=== PATIENT | female | born 2000 | race Caucasian/White ===

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

== ENCOUNTER 2018-10-25 15:30 | Emergency (ER) | payer MEDICAID ==
[~2018-10-25] VITALS: Ht 162.6 cm; Wt 80.0 kg
[~2018-10-25 15:30] MED LIST: CEPH500C PO
[2018-10-25 15:32] VITALS: Ht 162.6 cm; Wt 80.0 kg
[2018-10-25] MEDS ORDERED: SOD CHLORIDE 0.9% 1,000 ML IV STA (15:44)
[2018-10-25] MEDS ORDERED: SODIUM CHLORIDE 0.9% 1L BAG IV* STA (15:45)
[2018-10-25] MEDS ORDERED: PIPER-TAZO 3.375 GM IV (PMX) 100 ML IVPB STA (15:45)
--- NOTE | 2018-10-25 16:54 | ERD ---
ER Documentation Chief Complaint Chief Complaint RUQ MUQpain with n/v 30min [employer], HX:Pancreatitis; abd tender, pale/cool/clam HPI 18-year-old female presenting with epigastric and right upper quadrant abdominal pain radiating to her back. This started about 30 minutes prior to arrival. The pain has improved slightly but was 10 out of 10 prior to arrival. She was noted to be pale, cool, and diaphoretic in triage. She denies any fevers or chills. She did have some nonbloody and nonbilious vomiting. She denies drinking alcohol. No dysuria or hematuria. No chest pain or shortness of breath. ROS All systems reviewed and are negative except as per history of present illness. Medications Home Meds Active Scripts Ibuprofen* (Motrin*) 600 Mg Tab, 600 MG PO Q6H PRN for PAIN AND OR ELEVATED TEMP, #30 TAB Prov:COLTON CABRAL MD 10/25/18 Discontinued Scripts Cephalexin* (Cephalexin*) 500 Mg Capsule, 500 MG PO Q12H for 7 Days, #14 CAP Prov:CORKY BELL NP 11/30/17 Allergies Allergies: Coded Allergies: No Known Allergy (Unverified , 10/25/18) PMhx/Soc History of Surgery: No Anesthesia Reaction: No Hx Neurological Disorder: No Hx Respiratory Disorders: No Hx Cardiac Disorders: No Hx Psychiatric Problems: Yes (ANXIETY--ON THERAPY) Hx Miscellaneous Medical Probl: No Hx Alcohol Use: Yes (4-5 SHOTS 2X A MONTH) Hx Substance Use: Yes (MARIJUANA IN THE PAST) Hx Tobacco Use: No Smoking Status: Never smoker FmHx Family History: No diabetes Physical Exam Vitals Vital Signs Date Temp Pulse Resp B/P (MAP) Pulse Ox O2 O2 Flow FiO2 Time Delivery Rate 10/25/18 54 18 95/61 (72) 100 Room Air 17:34 10/25/18 57 15 91/57 (68) 100 Room Air 16:55 10/25/18 96.3 53 36 79/50 (60) 99 15:32 Physical Exam Const: No acute distress, well-appearing on my exam, nontoxic Head: Atraumatic Eyes: Normal Conjunctiva ENT: Normal External Ears, Nose and Mouth. Neck: Full range of motion. No meningismus. Resp: Clear to auscultation bilaterally Cardio: Regular rate and rhythm, no murmurs Abd: Soft, mild epigastric tenderness to palpation with no rebound or guarding. Non distended. Normal bowel sounds Skin: No petechiae or rashes Back: No midline or flank tenderness Ext: No cyanosis, or edema Neur: Awake and alert Psych: Normal Mood and Affect Result Diagram: 10/25/18 1552 10/25/18 1552 Results 24 hrs Laboratory Tests Test 10/25/18 12:35 10/25/18 15:52 10/25/18 16:01 10/25/18 17:42 Urine Color YELLOW Urine Clarity SLIGHTLY CLOUDY Urine pH 5.0 Urine Specific 1.020 [place] Urine Ketones NEGATIVE mg/dL Urine Nitrite NEGATIVE mg/dL Urine Bilirubin NEGATIVE mg/dL Urine Urobilinogen 1+ mg/dL Urine Leukocyte NEGATIVE Gage/ul Esterase Urine Microscopic 1 /HPF RBC Urine Microscopic 3 /HPF WBC Urine Squamous FEW /HPF Epithelial Cells Urine Mucus FEW /HPF Urine Hemoglobin NEGATIVE mg/dL Urine Glucose NEGATIVE mg/dL Urine Total Protein 1+ mg/dl White Blood Count 8.5 10^3/ul Red Blood Count 4.33 10^6/ul Hemoglobin 12.8 g/dl Hematocrit 39.5 % Mean Corpuscular 91.2 fl Volume Mean Corpuscular 29.6 pg Hemoglobin Mean Corpuscular 32.4 g/dl Hemoglobin Concent Red Cell 13.1 % Distribution Width Platelet Count 404 10^3/UL Mean Platelet 10.0 fl Volume Immature 0.400 % Granulocytes % Neutrophils % 52.7 % Lymphocytes % 37.4 % Monocytes % 5.7 % Eosinophils % 3.3 % Basophils % 0.5 % Nucleated Red Blood 0.0 /100WBC Cells % Immature 0.030 10^3/ul Granulocytes # Neutrophils # 4.5 10^3/ul Lymphocytes # 3.2 10^3/ul Monocytes # 0.5 10^3/ul Eosinophils # 0.3 10^3/ul Basophils # 0.0 10^3/ul Nucleated Red Blood 0.0 10^3/ul Cells # Prothrombin Time 12.2 Sec Prothrombin Time 1.0 Ratio INR International 0.89 Normalized Ratio Activated 26.3 Sec Partial Thromboplas t Time Sodium Level 144 mmol/L Potassium Level 3.6 mmol/L Chloride Level 106 mmol/L Carbon Dioxide 25 mmol/L Level Anion Gap 13 Blood Urea Nitrogen 12 mg/dl Creatinine 0.67 mg/dl Est Glomerular > 60 mL/min Filtrat Rate mL/min Glucose Level 154 mg/dl Calcium Level 9.1 mg/dl Total Bilirubin 0.7 mg/dl Direct Bilirubin 0.00 mg/dl Indirect Bilirubin 0.7 mg/dl Aspartate Amino 51 IU/L Transf (AST/SGOT) Alanine 38 IU/L Aminotransferase (A LT/SGPT) Alkaline 68 IU/L Phosphatase Total Protein 7.8 g/dl Albumin 4.6 g/dl Globulin 3.20 g/dl Albumin/Globulin 1.43 Ratio Lipase 75 U/L POC Venous Lactate 2.3 mmol/L Bedside Urine pH 6.0 (LAB) Bedside Urine 2+ Protein (LAB) Bedside Urine Negative Glucose (UA) Bedside Urine Negative Ketones (LAB) Bedside Urine Blood Negative Bedside Urine Negative Nitrite (LAB) Bedside Urine Negative Leukocyte Esterase (L Test 10/25/18 17:43 10/25/18 18:27 POC Beta HCG, NEGATIVE Qualitative Lactic Acid Level 1.4 mmol/L Current Medications Medications Dose Sig/Chong Start Time Status Last (Trade) Ordered Route PRN Stop Time Admin Dose Reason Admin Sodium 1,000 ml @ Q1H STAT 10/25/18 DC Chloride 1,000 mls/hr IV 15:44 10/25/18 15:47 Sodium 2,400 ml BOLUS OVER 2 10/25/18 DC 10/25/18 Chloride HOURS STAT 15:45 10/25/18 16:06 (NS) IV* 15:47 Piperacillin 100 ml @ ONCE STAT 10/25/18 DC 10/25/18 Sod/ 200 mls/hr IVPB 15:45 10/25/18 16:54 Tazobactam 16:14 Sod Procedures/MDM EMERGENT LABS AND DIAGNOSTIC STUDIES: Lab Results above were reviewed and interpreted by me. CBC: no anemia or evidence of infection CMP: No evidence of clinically significant electrolyte abnormality, acidosis, renal failure, hypoglycemia, liver disease, or biliary obstruction Lipase: no evidence of pancreatitis Lactate elevated UA: no evidence of infection 12-lead EKG was interpreted by Abraham Cabral MD: Sinus bradycardia at 56 bpm Normal axis Normal intervals No acute ST or T wave changes suggestive of acute ischemia or STEMI. Radiology Results as interpreted by Radiology below were reviewed by River Cabral MD: Chest x-ray shows no acute abnormalities Ultrasound gallbladder: Cholelithiasis without evidence of cholecystitis or biliary obstruction Initial Nursing notes reviewed. Previous Medical Records requested via the Electronic Health Record. EMERGENCY DEPARTMENT COURSE / MEDICAL DECISION MAKING: Patient likely presenting with biliary colic. When she initially arrived, she was bradycardic, hypotensive, and diaphoretic which I suspect was most likely a vasovagal response. Sepsis work-up was initiated given her complaint of abdominal pain. However as soon as the patient arrived to the bed, her vitals had improved. She also states that her pain is improved. Differential includes but is not limited to biliary colic, biliary obstruction, acute cholecystitis, pancreatitis, hepatitis, lower lobe pneumonia, gastritis, colitis, cardiac pathology, aortic dissection, ureterolithiasis, pyelonephritis. Labs were or dered to evaluate for above and were unremarkable. Chest Xray ordered to evaluate for pneumonia and [was read as normal by radiology]. Ultrasound of the abdomen ordered to evaluate gallbladder and showed [no acute pathology]. I suspect the patient most likely was suffering from biliary colic. There is no evidence of pancreatitis or cholecystitis. Doubt serious bacterial infection. Her lactate was slightly elevated, but I feel this is most likely secondary to hypoperfusion due to transient hypotension and not sepsis. Patient symptoms have resolved and she is stable for discharge. Return precautions discussed. Follow-up with outpatient surgery also discussed for possible elective cholecystectomy. Departure Diagnosis: Primary Impression: Biliary colic Additional Impression: Gallstone Cholecystitis presence: without cholecystitis Biliary obstruction: without biliary obstruction Qualified Codes: K80.20 - Calculus of gallbladder without cholecystitis without obstruction Condition: Stable COLTON CABRAL MD Oct 25, 2018 16:54
[2018-10-25] MEDS ORDERED: IBUP-1542 PO (18:32)
[2018-10-25 20:03] VITALS: BP 99/59; PULSE 62; RESP 18
== END 2018-10-25 20:17 | disposition home or self-care (01) ==
LOC: E/R 15:30
DX: K80.50 Calculus of bile duct without cholangitis or cholecystitis without obstruction (principal); K80.20 Calculus of gallbladder without cholecystitis without obstruction
CPT/HCPCS: 36415; 71045; 76705; 80053; 81001; 81003; 81025; 83605; 83690; 85025; 85610; 85730; 87040; 87086; 93005; 96374; J2543; J7030; Z7502

== ENCOUNTER 2018-10-30 02:21 | Emergency (ER) | payer MEDICAID ==
[~2018-10-30] VITALS: Ht 162.6 cm; Wt 79.3 kg
[~2018-10-30 02:21] MED LIST changes: -CEPH500C PO; +IBUP-1542 PO
[2018-10-30 02:48] VITALS: BP 111/54; PULSE 60; RESP 18; Ht 162.6 cm; Wt 79.3 kg
[2018-10-30] MEDS ORDERED: IBUP-1561 PO (05:20)
[2018-10-30] MEDS ORDERED: ACET-141 PO (05:20)
--- NOTE | 2018-10-30 05:22 | ERD ---
ER Documentation Chief Complaint Chief Complaint mid back pain while doing squat exercises around 10 pm ROS All systems reviewed and are negative except as per history of present illness. Medications Home Meds Active Scripts Ibuprofen* (Motrin*) 400 Mg Tab, 400 MG PO Q6H PRN for PAIN AND OR ELEVATED TEMP, #30 TAB Prov:JULIA CHAMPAGNE DO 10/30/18 Acetaminophen* (Acetaminophen*) 500 MG Extra Strength Tablet, 500 MG PO Q4H PRN for PAIN AND OR ELEVATED TEMP, #30 TAB Prov:JULIA CHAMPAGNE DO 10/30/18 Ibuprofen* (Motrin*) 600 Mg Tab, 600 MG PO Q6H PRN for PAIN AND OR ELEVATED TEMP, #30 TAB Prov:COLTON ERICKSON MD 10/25/18 Discontinued Scripts Cephalexin* (Cephalexin*) 500 Mg Capsule, 500 MG PO Q12H for 7 Days, #14 CAP Prov:CORKY BELL NP 11/30/17 Allergies Allergies: Coded Allergies: No Known Allergy (Unverified , 10/25/18) PMhx/Soc History of Surgery: No Anesthesia Reaction: No Hx Neurological Disorder: No Hx Respiratory Disorders: No Hx Cardiac Disorders: No Hx Psychiatric Problems: Yes (ANXIETY--ON THERAPY) Hx Miscellaneous Medical Probl: No Hx Alcohol Use: Yes (4-5 SHOTS 2X A MONTH) Hx Substance Use: Yes (MARIJUANA IN THE PAST) Hx Tobacco Use: No Smoking Status: Never smoker Physical Exam Vitals Vital Signs Date Temp Pulse Resp B/P (MAP) Pulse Ox O2 O2 Flow FiO2 Time Delivery Rate 10/30/18 97.6 60 18 111/54 97 02:48 (73) Physical Exam Const: No acute distress Head: Atraumatic Eyes: Normal Conjunctiva ENT: Normal External Ears, Nose and Mouth. Neck: Full range of motion. No meningismus. Resp: Clear to auscultation bilaterally Cardio: Regular rate and rhythm, no murmurs Abd: Soft, non tender, non distended. Normal bowel sounds Skin: No petechiae or rashes Back: No midline or flank tenderness Ext: No cyanosis, or edema Neur: Awake and alert Psych: Normal Mood and Affect Departure Diagnosis: Primary Impression: Back pain Back pain location: thoracic back pain Chronicity: unspecified Back pain laterality: unspecified Qualified Codes: M54.6 - Pain in thoracic spine Condition: Fair Patient Instructions: Back Pain (Acute Or Chronic) Referrals: [facility] YOU HAVE RECEIVED A MEDICAL SCREENING EXAM AND THE RESULTS INDICATE THAT YOU DO NOT HAVE A CONDITION THAT REQUIRES URGENT TREATMENT IN THE EMERGENCY DEPARTMENT. FURTHER EVALUATION AND TREATMENT OF YOUR CONDITION CAN WAIT UNTIL YOU ARE SEEN IN YOUR DOCTORS OFFICE WITHIN THE NEXT 1-2 DAYS. IT IS YOUR RESPONSIBILITY TO MAKE AN APPOINTMENT FOR FOLOW-UP CARE. IF YOU HAVE A PRIMARY DOCTOR --you should call your primary doctor and schedule an appointment IF YOU DO NOT HAVE A PRIMARY DOCTOR YOU CAN CALL OUR PHYSICIAN REFERRAL HOTLINE AT IF YOU CAN NOT AFFORD TO SEE A PHYSICIAN YOU CAN CHOSE FROM THE FOLLOWING [facility] [id number] [facility]. [facility] [address] [address] [address] [facility] [address] [facility] [address] [facility]. [facility] [address] [facility]. [facility]. [address] Additional Instructions: Call your primary care doctor TOMORROW for an appointment during the next 1-2 days.See the doctor sooner or return here if your condition worsens before your appointment time. JULIA CHAMPAGNE DO Oct 30, 2018 05:22
== END 2018-10-30 06:13 | disposition home or self-care (01) ==
LOC: FTE 02:21
DX: M54.6 Pain in thoracic spine (principal)
CPT/HCPCS: 99282